=== PATIENT | female | born 1995 | race Caucasian/White ===

== ENCOUNTER → 2024-01-22 15:04 | Outpatient (CLI) | payer BC, SELFPAY ==
[2024-01-22 15:55] LABS: Influenza A - CEPHEID Flu A NEGATIVE (NEGATIVE); Influenza B - CEPHEID Flu B NEGATIVE (NEGATIVE); Respiratory Syncytial Virus Negative (Negative)
[2024-01-22 15:56] LABS: COVID-19 CEPHEID 4-PLEX PCR Negative (Negative)
== END ==
PROVIDERS: Visit Provider Physician Assistant Medical
DX: R05.1 Acute cough (principal)
CPT/HCPCS: 0241U

== ENCOUNTER → 2024-11-11 15:19 | Outpatient (CLI) | payer BC, SELFPAY ==
--- NOTE | 2024-11-11 15:21 | DI.US.S_ITS ---
PROCEDURE: US PELVIC COMPLETE INDICATIONS: CHRONIC PELVIC PAIN TECHNIQUE: Real-time scanning was performed of the pelvic organs, with image documentation. Additional endovaginal scanning was necessary due to incomplete visualization of the adnexal and endometrial structures by transabdominal scanning. COMPARISON: None. FINDINGS: Uterus: Uterus is anteverted and normal in size at 6.7 x 3.4 x 4.4 cm. The myometrium is homogeneous. The endometrium measures 9.3 mm combined thickness. There is a 10 x 7 millimeter intramural fibroid in the midportion posteriorly. Ovaries: The right ovary measures 2.4 x 2.3 x 2.3 cm, with a calculated ovarian volume of 6.6 cc. The left ovary measures 2.8 x 1.6 x 2.8 cm, with a calculated ovarian volume of 6.5 cc. The ovaries have a normal sonographic appearance. Less than 12 follicles can be seen in each ovary. No adnexal masses are seen. Other: No pathologic free abdominal or pelvic fluid. IMPRESSION: 1. There is a uterine fibroid measuring up to 1 centimeter. 2. No adnexal mass or pelvic free fluid. We strive to produce accurate, complete, and clear reports of imaging services. To assist us in improving patient care, this report was composed using standard report templates and voice recognition software. Therefore, it may contain abnormal punctuation, insertions and/or omissions. Occasional wrong-word or sound-alike substitutions may occur. Though we review the report and make efforts to correct it, we do recommend that the report be read carefully in proper context to recognize any text inaccuracies. Dictated by: Pineda Vu M.D. on 11/11/2024 at 20:49 Approved by: Pineda Vu M.D. on 11/11/2024 at 20:51
== END ==
LOC: US 15:20
PROVIDERS: PCP Family Medicine; Referring Provider Obstetrics & Gynecology; Visit Provider Obstetrics & Gynecology
DX: D25.1 Intramural leiomyoma of uterus (principal); R10.20 Pelvic and perineal pain unspecified side
CPT/HCPCS: 76830; 76856

== ENCOUNTER → 2024-12-09 15:36 | Outpatient (CLI) | payer OTHER, SELFPAY ==
[2024-12-11 13:40] LABS: Trichomoas vaginalis Negative (Negative)
== END ==
PROVIDERS: PCP Family Medicine; Visit Provider Obstetrics & Gynecology
DX: R10.20 Pelvic and perineal pain unspecified side (principal); G89.29 Other chronic pain
CPT/HCPCS: 81514